=== PATIENT | female | born 1970 | race Caucasian/White ===

== ENCOUNTER → 2019-12-27 15:28 | Outpatient (CLI) | payer OTHER, SELFPAY ==
[2019-12-27 14:03] VITALS: BMI 28.0
[2019-12-31 19:04] LABS: HPV APTIMA, High Risk Negative (Negative)
== END ==
PROVIDERS: PCP Family Medicine; Visit Provider Nurse Practitioner Women's Health
DX: Z12.4 Encounter for screening for malignant neoplasm of cervix (principal)
CPT/HCPCS: 87624; 88175; G0145

== ENCOUNTER → 2020-01-12 | Outpatient (CLI) | payer OTHER, SELFPAY ==
[2019-12-27 14:03] VITALS: BMI 28.0
--- NOTE | 2020-01-12 12:41 | US_ITS ---
STUDY: ULTRASOUND OF THE FEMALE PELVIS - COMPLETE REASON FOR EXAM: Female, 49 years old. menorrhagia LMP: January 12, 2020. TECHNIQUE: Transabdominal and Transvaginal TECHNICAL QUALITY: Adequate. COMPARISON: None. FINDINGS: The uterus is anteverted and is in a midline position. The uterus measures 7 cm x 4.5 cm x 3.8 cm. There is a Nabothian cyst of the cervix. The endometrium measures 5.8 mm in thickness, and is hyperechoic. There is no demonstrated endometrial mass. There is a 1.4 cm x 1.2 cm x 0.7 cm fibroid in the lower uterine segment. I.U.D. - The patient does not have an I.U.D. The right ovary is visualized. The right ovary measures 2.6 cm x 1.1 centimeters x 1.4 cm. There is no right ovarian cyst or ovarian mass. There is no visualized right adnexal mass or complex lesion. There is normal arterial and normal venous vascularity. The left ovary is visualized. The left ovary measures 3 cm x 1.9 cm x 1.6 cm. There is no left ovarian cyst or ovarian mass. There is no visualized left adnexal mass or complex lesion. There is normal arterial and normal venous vascularity. There is no fluid in the cul-de-sac. The pre void volume of the bladder was 521 ml. Polycystic ovary disease: No. US/Transvaginal Non- IMPRESSION: 1.4 cm x 1.2 cm x 0.7 cm fibroid in the lower uterine segment. Electronically Signed: Shiraz Aldrich, at 14:53 EDT , Service support ,
--- NOTE | 2020-01-12 12:41 | BI_ITS ---
MAMMOGRAPHY - BILATERAL SCREENING REASON FOR EXAM: Female, 49 years old. Routine annual screening examination. PERTINENT HISTORY: Aunt with breast cancer. TECHNIQUE: Digital bilateral breast kilo (3D mammographic acquisition) in the CC and MLO projections. 2-D mediolateral oblique (MLO) and craniocaudad (CC) views of both breasts were obtained. CAD: Full Field Digital Mammography with Computer Added Detection was performed. COMPARISON: None. Baseline examination. FINDINGS: Breast Composition: The breasts are heterogeneously dense, which may obscure small masses. There are no dominant masses or suspicious calcifications. Benign appearing bilateral axillary lymph nodes. No other significant abnormalities are identified. BI/SCREEN MAMM (CAD) W/KILO BILAT IMPRESSION: Negative screening mammogram. Yearly followup mammogram recommended. (A) ASSESSMENT CATEGORY: BIRADS Category 2: Benign. A letter regarding these results will be sent to the patient by the facility within 30 days. Approximately 10% of breast cancers are not detected by mammography. A normal mammogram should not delay biopsy of a clinically suspicious abnormality. [id number] Electronically Signed: Shiraz Aldrich, at 14:29 EDT , Service support ,
--- NOTE | 2020-01-12 12:41 | US_ITS ---
STUDY: ULTRASOUND OF THE FEMALE PELVIS - COMPLETE REASON FOR EXAM: Female, 49 years old. menorrhagia LMP: January 12, 2020. TECHNIQUE: Transabdominal and Transvaginal TECHNICAL QUALITY: Adequate. COMPARISON: None. FINDINGS: The uterus is anteverted and is in a midline position. The uterus measures 7 cm x 4.5 cm x 3.8 cm. There is a Nabothian cyst of the cervix. The endometrium measures 5.8 mm in thickness, and is hyperechoic. There is no demonstrated endometrial mass. There is a 1.4 cm x 1.2 cm x 0.7 cm fibroid in the lower uterine segment. I.U.D. - The patient does not have an I.U.D. The right ovary is visualized. The right ovary measures 2.6 cm x 1.1 centimeters x 1.4 cm. There is no right ovarian cyst or ovarian mass. There is no visualized right adnexal mass or complex lesion. There is normal arterial and normal venous vascularity. The left ovary is visualized. The left ovary measures 3 cm x 1.9 cm x 1.6 cm. There is no left ovarian cyst or ovarian mass. There is no visualized left adnexal mass or complex lesion. There is normal arterial and normal venous vascularity. There is no fluid in the cul-de-sac. The pre void volume of the bladder was 521 ml. Polycystic ovary disease: No. US/Pelvic (Non ) IMPRESSION: 1.4 cm x 1.2 cm x 0.7 cm fibroid in the lower uterine segment. Electronically Signed: Shiraz Aldrich, at 14:53 EDT , Service support ,
== END | disposition home or self-care (01) ==
PROVIDERS: PCP Family Medicine; Referring Provider Nurse Practitioner Women's Health; Visit Provider Nurse Practitioner Women's Health
DX: N92.0 Excessive and frequent menstruation with regular cycle (principal); Z12.31 Encounter for screening mammogram for malignant neoplasm of breast
CPT/HCPCS: 76830; 76856; 77063; 77067

== ENCOUNTER → 2020-01-31 | Outpatient (CLI) | payer OTHER, SELFPAY ==
[2020-01-31 13:36] VITALS: BMI 27.8
--- NOTE | 2020-01-31 13:50 | EMB_PTH ---
PATIENT: AMRIK STEPHEN [facility] U#:[id number] AGE/SX: 49/F ROOM: RE01/31/[address]: ANNE Savage : 1970 BED: DIS: 01/31/2020 SPEC #: [id number] RECD: 01/31/20 16:52 STATUS: MIKY REQ #: [id number] MARY ELLEN: 01/31/20 13:[address]: Sandie Cervantes NP DEPT: SURGICAL PATHOLOGY RECD BY: Bettina Espinosa ENTERED: 02/01/20 14:25 SP TYPE: ENDOM BX/C HEATH DR: Dr. Esa Posey MD Tissues: Endometrium, NOS Procedures: Surgery Specimen Level IV Comments: @ Originally on account #[id number] Req #[id number] HEADER OPERATION: Endometrial biopsy PRE-OP DIAGNOSIS: Abnormal uterine bleeding TISSUE SUBMITTED: Endometrial lining MICROSCOPIC DIAGNOSIS Endometrial biopsy: Secretory endometrium. SJ:nancy 02/02/20 MICROSCOPIC DESCRIPTION Slides are reviewed. GROSS DESCRIPTION Received is one container labeled with the patient's name and not further designated. The specimen consists of multiple irregular fragments of light gómez soft tissue that in aggregate measure 2.5 x 2.5 x 0.2 cm. The specimen is totally submitted in one cassette. / AM:nancy 02/01/20 TC:4 CPT: 27895
== END | disposition home or self-care (01) ==
LOC: LABSPEC 17:03
PROVIDERS: PCP Family Medicine; Referring Provider Nurse Practitioner Women's Health; Visit Provider Nurse Practitioner Women's Health
DX: N93.9 Abnormal uterine and vaginal bleeding, unspecified (principal)
CPT/HCPCS: 88305

== ENCOUNTER 2020-03-07 05:39 | Day surgery (SDC) | payer OTHER, SELFPAY ==
[2020-01-17 14:26] VITALS: BMI 28.0
[2020-02-21 16:18] VITALS: BMI 27.8
[2020-03-07] VITALS (15 sets, daily range): BP systolic 101–145; BP diastolic 65–93; PULSE 64–98; RESP 16; TEMP 36.1–37; O2SAT 95–100; BMI 27.6; BMI 29.4
[2020-03-07 06:01] LABS: Internal QC Validated? YES +Cl - CLEAR BKGD; Pregnancy, Urine Negative Negative
[2020-03-07] MEDS: Lactated Ringers 1,000 ML 40 ML IV (06:21)
[2020-03-07] MEDS: Acetaminophen 500 MG Tablet 1000 MG PO ×3 (06:23→18:05)
[2020-03-07] MEDS: Celecoxib 200 MG Capsule 400 MG PO (06:24)
[2020-03-07] MEDS: Scopolamine 1mg/72hr Patch 1 PATCH TRANSDERM. (06:24)
[2020-03-07] MEDS: Gabapentin 600 MG Tablet PO (06:24)
[2020-03-07] MEDS: dexAMETHasone 10 MG/ML Vial 8 MG IV (06:24)
[2020-03-07 06:25] LABS: Hematocrit 40.6 % (37-47); Hemoglobin 13.3 g/dL (12.0-15.0); Mean Corp Hgb Conc 32.8 g/dL (32-36); Mean Corpuscular Hgb 28.4 pg (27.0-32.0); Mean Corpuscular Volume 86.6 fL (81-99); Mean Platelet Vol. 10.4 fl (6.2-12.0); Platelet Count 377 K/mm3 (150-450); RBC Distribution Width CV 14.9 % (11.6-14.6); Red Blood Count 4.69 M/mm3 (4.2-5.4); White Blood Count 9.8 K/mm3 (4.4-11.0)
[2020-03-07 06:35] LABS: Magnesium 2.2 mg/dL (1.6-2.6)
[2020-03-07] MEDS: Enoxaparin 40 MG/0.4 ML Syringe SC (07:00)
--- NOTE | 2020-03-07 07:15 | PCM.HPOB.BLA ---
- Problem List (1) Heavy menses Status: Acute Qualifiers: Comment: nl emb, 7 cm uterus with 1.5 cm fibroid. David (2) Urge incontinence Status: Acute (3) Uterovaginal prolapse Status: Acute Comment: urogyn consult. plan TVH BS combo case. Will need pelvic floor physical therapy after surgery (4) PCOS (polycystic ovarian syndrome) Status: Chronic History and Physical Date of Admission: 03/07/20 Intake Vital Signs 02/21/20 BMI 27.8 02/21/20 Height 5 ft 2 in 02/21/20 Weight: 152 lb 02/21/20 BMI 27.8 02/21/20 BP 112/80 Intake Visit Reasons: ERAS PRE OP Chief Complaint: Pre op ERAS TV BS Nayeli Pearce Pension Adviser Required: No Is patient in pain?: No Allergies iodine Allergy (Mild, Verified 02/21/20 16:18) felt ill Latex, Natural Rubber Allergy (Mild, Verified 02/21/20 16:18) rash Medications NK 12/27/19 [History Confirmed 02/21/20] Is last menstrual period known: No Post menopausal: No Patient : No [facility] Medical History PCOS (polycystic ovarian syndrome) (Chronic) Surgical History Depressed skull fracture (Acute) Family History Mother Myocardial infarction Father Dementia Social History (Updated 02/21/20 @ 16:[address] Angie Holt MD) Smoking Status: Never smoker alcohol intake: never substance use type: does not use caffeine: Yes what type of physical activity do you participate in: none seatbelt use: always do you feel safe at home: Yes additional social history: -[employer] Patient is an Director Of Engineering HPI ERAS PRE OP: Details: AMRIK STEPHEN is a 49 year old who presents for Female Reproductive History Questions: Metorrhagia: No, Sexually active: Yes, Dyspareunia: No, PCB: No Menopausal Symptoms: No hot flashes, No night sweats, No difficulty concentrating, No change in libido Pregancy History 0 Elective abortions Hx Para Spontaneous abortions Hx # Term Pregnancies Ectopic pregnancies Hx # Pregnancies Multiple births # of living children Past Pregnancies Del. Date Name GA/Weeks Outcome Route Bth Weight Gen Labor [facility]est[facility] FOB Unknown 1997 Sher[place]- adopted ROS Const Constitutional: Denies night sweats Cardio Card: Denies chest pain Resp Resp: Denies cough or dyspnea GI GI: Reports as per HPI; denies abdominal pain, constipation, nausea or vomiting : Denies hot flashes or nipple discharge Skin Skin/Breast: Denies nipple discharge Psych Psych: Denies change in sex drive or difficulty concentrating Exam Const General: cooperative, healthy appearing, comfortable, no acute distress, well developed Nutritional Appearance: average body habitus Orientation: alert HENMT Head: normal to inspection, normocephalic Neck Neck: normal visual inspection, trachea midline Thyroid: thyroid normal Resp Effort & Inspection: normal respiratory effort GI Inspection: normal to inspection, non-distended Palpation: soft, no hepatosplenomegaly General: bladder normal to palpation External Female Exam: normal external appearance, normal appearance of the urethra Urethra: normal appearance of the urethra Speculum Exam - Vagina: normal appearance of the vagina, vaginal bleeding Speculum Exam - Cervix: normal appearance of the cervix, nontender Bimanual Exam- Vagina & Uterus: bladder normal to palpation, No cervical tenderness Bimanual Exam- Adnexa, other: normal adnexae, adnexae mobile, no adnexal masses, pelvic support normal Pelvic Support: normal OB/External & Speculum: vaginal bleeding Speculum Exam: vaginal bleeding Skin General: no rashes or lesions noted Assessment & Plan Problems 1. PCOS (polycystic ovarian syndrome) E28.2 2. Heavy menses N92.0 nl emb, 7 cm uterus with 1.5 cm fibroid. David 3. Uterovaginal prolapse N81.4 urogyn consult. plan TVH BS combo case. Will need pelvic floor physical therapy after surgery 4. Urge incontinence N39.41 Plan After discussing the patient's diagnosis and treatment plan options, patient wishes to proceed with surgical management. I have discussed with the patient the risks, benefits, and alternatives of the procedure which include but are not limited to risks of anesthesia, bleeding, infection, possible damage to bowel, bladder, or surrounding vasculature which could lead to additional surgery to evaluate any complications. Patient agrees to procedure and wishes to proceed. ACOG/uptodate references given for additional information regarding procedure. Coding Level of Care Code No Charge Diagnoses PCOS (polycystic ovarian syndrome) E28.2 Heavy menses N92.0 Uterovaginal prolapse N81.4 Urge incontinence N39.41 UPDATE- I have seen the patient and performed any clinically relevant updates to the history and physical exam. Angie Holt MD
--- NOTE | 2020-03-07 07:17 | OP.PCM_ITS ---
Problem List (1) Heavy menses Status: Acute Qualifiers: Comment: nl emb, 7 cm uterus with 1.5 cm fibroid. David (2) Urge incontinence Status: Acute (3) Uterovaginal prolapse Status: Acute Comment: urogyn consult. plan TVH BS combo case. Will need pelvic floor physical therapy after surgery (4) PCOS (polycystic ovarian syndrome) Status: Chronic Report of Operation Date of Procedure: 03/07/20 Pre-Operative Diagnosis: prolapse Post-Operative Diagnosis: same Surgery/Procedure Performed:: tvh bs Description of Surgical Findings:: nl tubes ovaries uterus flexboard operator: Edith Ayers flexboard operator: Tristen Gonzalez Type of Anesthesia:: General Special Medications: none Specimen's removed: uterus tubes Drains: ambrose Estimated Blood Loss (mL): 50 Fluids Replaced: crystalloid Description of Procedure: Patient was taken to the operating room and was placed under general anesthesia was prepped and draped in normal sterile fashion in the dorsal lithotomy position. Preoperative antibiotics and SCDs and Ambrose catheter was placed inside the bladder. Weighted speculum was placed in the vagina and the anterior and posterior lip of the cervix was grasped with 2 Jorge clamps and circumferentially injected with dilute vasopressin. A circumferential incision was made with a scalpel and the posterior cul-de-sac was entered into sharply and a longneck speculum was placed. The anterior cul-de-sac was also dissected down and entered into sharply and the uterosacral ligaments were clamped cut and suture ligated bilaterally followed by the cardinal ligaments which were Clamped cut and suture ligated bilaterally with 0 Monocryl. The uterus serially descended and progressive bites were taken bilaterally up to the level of the utero-ovarian ligament bilaterally which was clamped transected and double ligated with 0 Monocryl suture and 0 Vicryl free tie. Bilateral fallopian tubes and ovaries were well visualized and noted be within normal limits and the bilateral fallopian tubes were transected across the base with a Dora clamp and removed and sutured with 0 Vicryl suture. Excellent hemostasis was noted. Posterior peritoneum was reapproximated with 2-0 Vicryl and a modified Hicks stitch was placed through the posterior vaginal cuff and bilateral uterosacral ligaments across the posterior cul-de-sac skimming along to provide apical support to the vagina. The vagina was closed with [id number] 0 Vicryl pop offs including the posterior and anterior peritoneum in the reapproximation. Excellent hemostasis was noted. All instruments removed from the vagina clear urine was noted at the end of the procedure and patient was awoken and taken recovery in stable condition. Grafts/Implants Used: see urogyn note - Complications none - Admit VTE Documentation VTE Present on Admission: No VTE Mechan Device Prophylaxis: SCD's VTE Pharm Prophylaxis ordered?: Yes Multi Select Codes - Urinary/Genital Urinary/Genital CPT Codes: 36258 TVH+BS/O <250gr uterus
--- NOTE | 2020-03-07 07:18 | PCM.DC.VHY ---
Discharge Diet: No Restrictions Discharge Activity: Return to Normal Activity, May Not Drive, May Shower May resume sexual activity in: 6-8 weeks Call your doctor if your incision/area has: Continuous Slow Oozing, Sudden Increased Bleeding, Increased Pain/ Swelling, Increased Redness, Foul Smelling Discharge Call your doctor if you observe: Fever of 101 or Higher, Inability to urinate, Inability to have a bowel movement, Using more than one pad per hour Allergies/Adverse Reactions: Allergies iodine Allergy (Mild, Verified 03/07/20 05:55) felt ill Latex, Natural Rubber Allergy (Mild, Verified 03/07/20 05:55) rash Medications to take at Discharge Multivitamin 1 ea PO DAILY 02/25/20 Naproxen [Naprosyn] 250 - 500 mg PO Q8H PRN PRN #30 tab 03/07/20 Oxycodone HCl/Acetaminophen [Percocet 5-325] 1 - 2 tablet PO Q6H PRN PRN 7 Days #15 tablet 03/07/20 The following prescriptions were given: Naproxen [Naprosyn] 250 - 500 mg PO Q8H PRN PRN #30 tab PRN Reason: MILD PAIN Transmission Status: Pending to [facility] Oxycodone HCl/Acetaminophen [Percocet 5-325] 1 - 2 tablet PO Q6H PRN PRN 7 Days #15 tablet PRN Reason: Pain Transmission Status: Sent to [facility] Orders to be completed after discharge: Type & Screen - PAT ONLY Time Frame: 03/07/20, Facility: [facility], Location: Laboratory Primary Care Physician: Esa Posey MD [Primary Care Provider] - Test Results: Test results from this visit will be discussed in further detail at your follow-up appointment, if applicable. Please Follow Up With: Angie Holt MD - [phone]
[2020-03-07] MEDS: Cefazolin 2 GM in 0.9% Normal Saline 100 ML IV (07:25)
--- NOTE | 2020-03-07 07:30 | HYST_PTH ---
PATIENT: AMRIK STEPHEN LOC: [facility] U#:[id number] AGE/SX: 49/F ROOM: RE03/07/[address]: Dr. Joceline Tyler MD : 1970 BED: DIS: 03/08/2020 SPEC #: [id number] RECD: 03/07/20 09:27 STATUS: MIKY ARA #: [id number] MARY ELLEN: 03/07/20 07:[address]: Joceline Tyler DEPT: SURGICAL PATHOLOGY RECD BY: Diony Jiménez ENTERED: 03/07/20 10:04 SP TYPE: HYSTERECT OTHR DR: MD Dr. Angie Salgado MD Tissues: Uterus, NOS Procedures: Surgery Specimen Level V HEADER OPERATION: ERAS, vaginal hysterectomy, bilateral salpingectomy PRE-OP DIAGNOSIS: Urge incontinence, uterovaginal prolapse, polycystic ovarian syndrome TISSUE SUBMITTED: Uterus, bilateral fallopian tubes MICROSCOPIC DIAGNOSIS Uterus, bilateral fallopian tubes, vaginal hysterectomy and bilateral salpingectomy: Cervix - chronic inflammation and squamous metaplasia. Endometrium - secretory endometrium. Myometrium - adenomyosis. - A submucosal leiomyoma (0.5 cm in greatest dimension). See comment. Bilateral fallopian tubes - no pathologic diagnosis. Paratubal cysts. SJ:rg 03/08/20 COMMENT The larger subserosal nodular mass is consistent with adenomyosis. MICROSCOPIC DESCRIPTION Slides are reviewed. GROSS DESCRIPTION Received in fixative is one container labeled with the patient's name and designated uterus, bilateral fallopian tubes. The specimen consists of a hysterectomy specimen consisting of uterus with cervix and detached bilateral fallopian tubes. The uterus with cervix weighs 56 gm and measures 8.5 x 5 x 3.5 cm. The serosal surface is gómez, glistening. The ectocervical mucosa is unremarkable. The external os is circular in contour. The endocervical canal measures 3 cm in length and the endocervical mucosa is gómez, glistening and unremarkable. The triangular endometrial cavity measures 5 cm in length and up to 2 cm in width. The endometrium is gómez, glistening without any mass lesion and measures 0.1 cm in thickness. The uterine wall reveals two nodular masses, one submucosal and subserosal. The submucosal mass measures 0.5 cm in greatest dimension. The subserosal mass measures 1.5 cm in greatest dimension. Sections of these masses reveal gómez whorled cut surfaces without areas of hemorrhage, necrosis or cystic degeneration. The uninvolved uterine wall measures up to 2 cm in thickness. The fallopian tubes are not identified as right or left. One of the fallopian tubes measure 5.5 cm in length and 0.5 cm in diameter. The fimbrial end is identified. Sections reveal unremarkable cut surfaces. The second fallopian tube measures 5.5 cm in length and 0.5 cm in diameter. The fimbrial end is identified. Four paratubal cysts are noted measuring 0.5 and 1.8 cm in greatest dimension. The paratubal cysts are filled with clear fluid. Sections reveal unremarkable cut surfaces. Textiles [employer] Teacher sections are submitted in nine cassettes as follows: 1 - anterior cervix, 2 - posterior cervix, 3 & 4 - anterior uterine wall (cassette 3 contains the smaller submucosal nodular mass), 5 & 6 - posterior uterine wall, 7 - larger subserosal nodular mass, 8??one fallopian tube, 9 - second fallopian tube and paratubal cysts. / RENAN:nancy 03/07/20 TC:5 CPT: 72051
[2020-03-07 07:35] LABS: Bedside Glucose 176 mg/dL (70-110)
[2020-03-07] MEDS: Estrogens,Conj. 1 Tube 1 DOSE (08:37)
[2020-03-07] MEDS: Vasopressin 20 UNITS/ML Vial (08:38)
[2020-03-07] MEDS: Ondansetron 4 MG/2 ML Vial IV (08:42)
[2020-03-07] MEDS: Lactated Ringers 1,000 ML 70 ML IV ×2 (09:04→14:52)
--- NOTE | 2020-03-07 09:48 | OP.PCM_ITS ---
Problem List (1) Stress incontinence Status: Acute Report of Operation Date of Procedure: 03/07/20 Pre-Operative Diagnosis: stress incontinence, uterovaginal prolapse Post-Operative Diagnosis: Same Surgery/Procedure Performed:: Mid urethral sling insertion, cystoscopy with bilateral ureteral catheterization Type of Anesthesia:: General Estimated Blood Loss (mL): 5cc Description of Procedure: The patient is a 49-year-old female who I evaluated in the office with mixed incontinence. After discussing the risk benefits and alternatives, undergoing urodynamics and cystoscopy, she decided to proceed with surgical intervention for her stress incontinence. Her informed consent included a discussion of the risks of COVID-19. The patient was taken to the operating room and placed in the operating room table. She was appropriately padded and secured to the table. Anesthesia monitored the head, neck, airway, IV access and vital signs throughout the case. Once anesthesia was appropriate ministered the patient underwent a hysterectomy etc. per Dr. John Toney. Following closure of the cuff the case was turned over to me. There is no remaining prolapse to repair. The mid urethra was identified and injected submucosally with vasopressin for hydrostatic dissection and hemostatic control. A midline vertical 1.5 cm incision was made over the mid urethra. Sharp and blunt dissection was performed on either side of the urethra. Using the Altis mid urethral sling trochars, the sling was inserted into the obturator complex bilaterally. The mesh lay against the urethra without tension and a flat position. The tensioning suture was cut. The midline incision was closed using running interlocking 2-0 Vicryl. At this time a cystourethroscopy was performed through the urethra. A good ureteral jet was observed on the patient's right side and minimally on the left. A whistle-tip 5 Cook Islander catheter was inserted to 20 cm on both sides without difficulty or evidence of obstruction or trauma. The cystoscope was removed and the Carrillo catheter was replaced. The vagina was packed with vaginal packing and Premarin cream. The patient was awakened and taken to the recovery room in good condition. There were no complications during the procedure. Grafts/Implants Used: Altis midurethral sling - Complications none - Admit VTE Documentation VTE Present on Admission: Yes VTE Mechan Device Prophylaxis: SCD's VTE Pharm Prophylaxis ordered?: Yes
[2020-03-07] MEDS: Docusate Sodium 100 MG Capsule PO ×2 (14:51→21:05)
[2020-03-07] MEDS: Cephalexin 500 MG Capsule PO ×2 (14:51→21:05)
[2020-03-07] MEDS: Ketorolac 30 MG/ML Syringe IV ×2 (14:52→18:05)
[2020-03-08 00:44] VITALS: BP 109/70; PULSE 73; RESP 16; TEMP 36.6; O2SAT 96
[2020-03-08] MEDS: Ketorolac 30 MG/ML Syringe IV ×3 (00:50→12:21)
[2020-03-08] MEDS: Acetaminophen 500 MG Tablet 1000 MG PO ×2 (00:50→06:47)
[2020-03-08 04:25] VITALS: BP 110/69; PULSE 84; RESP 16; TEMP 36.7; O2SAT 98
[2020-03-08 05:18] LABS: Hematocrit 37.2 % (37-47); Hemoglobin 11.9 g/dL (12.0-15.0); Mean Corpuscular Hgb 27.5 pg (27.0-32.0); Mean Corpuscular Volume 86.1 fL (81-99); Mean Platelet Vol. 10.2 fl (6.2-12.0); Platelet Count 367 K/mm3 (150-450); RBC Distribution Width CV 15.2 % (11.6-14.6); RBC Distribution Width SD 48.4 fl (35.1-43.9); Red Blood Count 4.32 M/mm3 (4.2-5.4); White Blood Count 13.6 K/mm3 (4.4-11.0)
[2020-03-08 07:41] VITALS: O2SAT 96
--- NOTE | 2020-03-08 08:03 | PCM.PN.OB ---
Patient Problems: Active and Suspected Problems (Last Reviewed 02/21/20 @ 16:18 by Eliza Walker) Stress incontinence (Acute) Subjective: Pain controlled. Denies chest pain, shortness of breath, chills. Taking PO well. Not passing flatus yet. - Physical Exam Vitals/I&O's: Vital Signs Temp Pulse Resp BP Pulse Ox 98.0 F 84 16 110/69 96 03/08/20 04:25 03/08/20 04:25 03/08/20 04:25 03/08/20 04:25 03/08/20 07:41 Oxygen Flow Rate (L/min) 6 Oxygen Delivery Method Room Air Weight: 160 lb 11.472 oz Body Mass Index (BMI) 29.4 Intake and Output for Last 24 Hours 03/06/20 03/07/20 03/08/20 23:59 23:59 23:59 Intake Total 2214 / 2364 1350 / 1350 Output Total 1350 / 1950 950 / 950 Balance 864 / 414 400 / 400 General: Oriented x3 Abdomen: Soft, Non-Distended Laboratory Results 03/08/20 04:54: WBC 13.6 H, RBC 4.32, Hgb 11.9 L, Hct 37.2, MCV 86.1, MCH 27.5, MCHC 32.0, RDW Std Deviation 48.4 H, RDW Coeff of Ryan 15.2 H, Plt Count 367, MPV 10.2 Current Medications Acetaminophen (Tylenol) 1,000 mg PO Q6 [facility] Last Admin: 03/08/20 06:47 Dose: 1,000 mg Documented by: Cephalexin (Keflex) 500 mg PO Q12 [facility] Last Admin: 03/07/20 21:05 Dose: 500 mg Documented by: Docusate Sodium (Colace) 100 mg PO BID [facility] Last Admin: 03/07/20 21:05 Dose: 100 mg Documented by: Enoxaparin Sodium (Lovenox) 40 mg SC DAILY [facility] Sodium Chloride () 250 mls @ 15 mls/hr IV .[id number] PRN PRN Reason: Saline Flush Sodium Chloride () 250 mls @ 15 mls/hr IV .[id number] PRN PRN Reason: Additional IVPB Infusion Insulin Human Lispro (Humalog Kwikpen (Bkc)) 0 unit SC Q4H PRN PRN; Protocol PRN Reason: BG >/= 180, SEE PROTOCOL Ketorolac Tromethamine (Toradol (Bkc)) 30 mg IV Q6H [facility] Stop: 03/08/20 19:01 Last Admin: 03/08/20 06:03 Dose: 30 mg Documented by: Magnesium Oxide (Mag-Ox 400) 400 mg PO DAILY PRN PRN PRN Reason: Constipation Multivitamins (Multivitamin) 1 tablet PO DAILY@0800 [facility] Nutritional Formula (Lactose Free) (Ensure Enlive) 120 ml PO TIDCM [facility] Ondansetron HCl (Zofran Odt) 4 mg PO Q6H PRN PRN PRN Reason: NAUSEA Oxycodone HCl (Oxyir) 5 - 10 mg PO Q4H PRN PRN PRN Reason: Pain Score 4-10/10 Sodium Chloride () 10 - 40 ml IV UD PRN PRN Reason: SALINE FLUSH Medical Necessity - Tobacco Use Smoking Status: Never smoker Tobacco Use: Non-smoker Assessment/Plan All Active Problems (Last Reviewed 02/21/20 @ 16:18 by Eliza Walker) Stress incontinence (Acute) Urge incontinence (Acute) Uterovaginal prolapse (Acute) Heavy menses (Acute) TVH BS combo case Dr Tyler POD#[address] Tyler's visit note and orders Plans home today
[2020-03-08 08:17] VITALS: BP 112/67; PULSE 68; RESP 16; TEMP 36.6; O2SAT 97
[2020-03-08] MEDS: Multivitamins,Therapeutic Tablet 1 TABLET PO (08:46)
[2020-03-08] MEDS: Enoxaparin 40 MG/0.4 ML Syringe SC (10:32)
[2020-03-08] MEDS: Docusate Sodium 100 MG Capsule PO (10:32)
[2020-03-08] MEDS: Cephalexin 500 MG Capsule PO (10:32)
--- NOTE | 2020-03-08 11:45 | PCM.PN.BLA ---
Progress Note Sitting up in bed. pain controlled. Carrillo and packing is out. Voided twice so far. Not emptying yet. Vitals are good. A/P Post op day #1 Sling and cystoscopy repeat PVR and call to me in the office home later today with follow up in office STROKE Vital Signs/Narrative: Vital Signs Temp Pulse Resp BP Pulse Ox 03/08/20 08:17 97.9 F 68 16 112/67 97
[2020-03-08 13:34] VITALS: BP 130/74; PULSE 75; RESP 16; TEMP 36.8; O2SAT 98
--- NOTE | 2020-03-08 14:20 | DCINST_ITS ---
Discharge Diet: No Restrictions Discharge Activity: May Not Drive, May Shower May resume sexual activity in: 6-8 weeks Additional Activity Instructions:: no exercise, no strenuous activity. no lifting over 5 pounds for 4 weeks. ok for stairs. ok to shower. no tub bathing, swimming or hot tubs. no sexual activity Call your doctor if your incision/area has: Continuous Slow Oozing, Sudden Increased Bleeding, Increased Pain/ Swelling, Increased Redness, Foul Smelling Discharge Call your doctor if you observe: Fever of 101 or Higher, Inability to urinate, Inability to have a bowel movement, Using more than one pad per hour Allergies/Adverse Reactions: Allergies iodine Allergy (Mild, Verified 03/07/20 05:55) felt ill Latex, Natural Rubber Allergy (Mild, Verified 03/07/20 05:55) rash Medications to take at Discharge Multivitamin 1 ea PO DAILY 02/25/20 Naproxen [Naprosyn] 250 - 500 mg PO Q8H PRN PRN #30 tab 03/07/20 Oxycodone HCl/Acetaminophen [Percocet 5-325] 1 - 2 tab PO Q6H PRN PRN 7 Days #15 tab 03/07/20 Oxycodone HCl/Acetaminophen [Percocet 5-325] 1 - 2 tab PO Q6H PRN PRN 7 Days #15 tab 03/07/20 Bad tablePrimary Care Physician: Esa Posey MD [Primary Care Provider] - Test Results: Test results from this visit will be discussed in further detail at your follow- up appointment, if applicable. Please Follow Up With: Joceline Tyler MD When: in 1 week, call for appt Proposed Discharge Date: 03/08/20
== END 2020-03-08 15:45 | disposition home or self-care (01) ==
LOC: SDC 05:41 → AC 05:41 → MS3 03-08 08:20
PROVIDERS: Anesthesiology; Obstetrics & Gynecology; PCP Family Medicine; Referring Provider Urology; Visit Provider Urology
PROC: (CPT 58260; principal; 2020-03-07 07:10)
PROC: (CPT 57260; 2020-03-07 07:10)
DX: N81.4 Uterovaginal prolapse, unspecified (principal); N39.46 Mixed incontinence; N80.0 Endometriosis of uterus; D25.0 Submucous leiomyoma of uterus; N72 Inflammatory disease of cervix uteri; N83.8 Other noninflammatory disorders of ovary, fallopian tube and broad ligament; E28.2 Polycystic ovarian syndrome; N94.10 Unspecified dyspareunia; Z11.59 Encounter for screening for other viral diseases
CPT/HCPCS: 52000; 57288; 58262; 36415; 81025; 82962; 83735; 85027; 86850; 86900; 86901; 87635; 88307; 94799; 99251; J7120; C1758; G0463; J2405; U0003

== ENCOUNTER 2021-07-03 15:40 | Emergency (ER) | payer OTHER, SELFPAY ==
[2021-07-03 15:41] VITALS: BP 148/82; PULSE 102; RESP 18; TEMP 36.4; O2SAT 96; BMI 27.4
--- NOTE | 2021-07-03 17:41 | RAD_ITS ---
EXAM: XR CHEST, 1 VIEW CLINICAL INDICATION: cough Technologist Notes Congestion, sore throat, dizziness, fatigue. TECHNIQUE: Frontal view of the chest. This report was created using [employer] report generation technology. COMPARISON: None. FINDINGS: LUNGS AND PLEURAL SPACES: Unremarkable. No consolidation or edema. No pneumothorax. No effusion. HEART: Unremarkable. Cardiac silhouette not enlarged. MEDIASTINUM: Central airways and mediastinal contour are unremarkable. BONES/JOINTS: Unremarkable. SOFT TISSUES: Unremarkable. RAD/Chest 1 View (Portable) IMPRESSION: No radiographic evidence of acute cardiopulmonary disease. Electronically Signed: Garfield Peres MD at 18:25 EST , Service support ,
[2021-07-03 18:05] LABS: Absolute Lymphocyte Count 1.98 X10^3/uL (0.83-4.51); Basophil# 0.04 X10^3/uL; Basophil% 0.8 % (0-1); Eosinophil# 0.01 X10^3/uL; Eosinophils% 0.2 % (0-5); Hematocrit 47.7 % (37-47); Hemoglobin 15.5 g/dL (12.0-15.0); Lymphocyte # 1.98 X10^3/ul (0.83-4.51); Lymphocyte % 41.3 % (19-41); Mean Corp Hgb Conc 32.5 g/dL (32-36); Mean Corpuscular Hgb 28.2 pg (27.0-32.0); Mean Corpuscular Volume 86.9 fL (81-99); Mean Platelet Vol. 10.6 fl (6.2-12.0); Monocyte# 0.79 X10^3/uL; Monocyte% 16.5 % (0-10); NRBC Flagged by Analyzer 0 % (0-5); Neutrophil # 1.96 X10^3/uL (2.7-7.7); Platelet Count 307 K/mm3 (150-450); RBC Distribution Width CV 14.6 % (11.6-14.6); RBC Distribution Width SD 46.7 fl (35.1-43.9); Red Blood Count 5.49 M/mm3 (4.2-5.4); White Blood Count 4.8 K/mm3 (4.4-11.0)
--- NOTE | 2021-07-03 18:21 | NURSING ---
GREEN TOP HEMOLIZED. BLUE TOP IF IT'S NEEDED
--- NOTE | 2021-07-03 18:50 | EX.ED.DYSGE1 ---
HPI History of Present Illness Chief Complaint: General Illness Informant: patient Onset/Context/Timing Onset: Days (3) Context: Gradual Onset Timing: Continuous Quality: Lightheadedness Location: Head Worsened by: Nothing Relieved by: Nothing Associated Symptoms Associated Symptoms: Sore throat, rhinorrhea, diarrhea, subjective chills Narrative Narrative: Patient presents with dizziness, sore throat, rhinorrhea, and subjective chills that have been getting worse over the past 3 days. Patient describes her dizziness as a lightheaded feeling. Patient states nothing makes it worse and nothing makes it better. Patient states her is currently admitted to the hospital with COVID-19. Patient states she is coughing up some green sputum. Patient also admits to some diarrhea. [facility] Medical History PCOS (polycystic ovarian syndrome) Home Medications NK 04/19/20 [History Last Taken Unknown] Allergy/AdvReac Type Severity Reaction Status Date / Time iodine Allergy Mild felt ill Verified 07/03/21 15:43 Latex, Natural Rubber Allergy Mild rash Verified 07/03/21 15:43 Family History Mother Myocardial infarction Father Dementia Surgical History Depressed skull fracture History of cystoscopy History of total vaginal hysterectomy (TVH) Hx of bilateral salpingectomy Social History Smoking Status: Never smoker alcohol intake: never substance use type: does not use caffeine: Yes what type of physical activity do you participate in: none seatbelt use: always do you feel safe at home: Yes additional social history: -[employer]- [employer] 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[employer] [facility] ED Constitutional Constitutional ED: Reports chills and subjective; Denies fever(s) Eyes Eyes: Denies blurry vision or change in vision ENT ENT ED: Reports rhinorrhea and sore throat Cardiovascular Cardiovascular: Denies chest pain or palpitations Respiratory/Chest Respiratory/Chest: Reports cough and sputum; Denies dyspnea Gastrointestinal Gastrointestinal: Reports diarrhea; Denies nausea or vomiting Genitourinary Genitourinary ED: Denies dysuria or hematuria Musculoskeletal Musculoskeletal: Reports back pain; Denies neck pain Integumentary Denies abscess or rash Neurologic Neurologic: Denies headache(s) or weakness Allergic/Immunologic Allergic/Immunologic ED: Denies mouth swelling or urticaria EXAM Physical Exam Const Vital Signs: 07/03/21 15:41 07/03/21 18:05 Temperature 97.6 F L Temperature Source Temporal Pulse Rate 102 H Respiratory Rate 18 Respiratory Effort Normal Non-Labored Respiratory Pattern Normal Blood Pressure 148/82 H Blood Pressure Mean 104 Pulse Ox 96 Oxygen Delivery Method Room Air Positive well nourished and well developed General Appearance ED: well developed HEENT Reports moist mucous membranes Neck supple and no JVD Resp normal respiratory effort and clear to auscultation bilaterally Cardio regular rate, regular rhythm and no murmurs GI normal to inspection, nondistended, normoactive bowel sounds and non-tender Palpation: soft Extremity normal to inspection General Extremety ED: Negative for edema or tenderness General Extremity: Negative for edema Neuro oriented x3, CN's II-XII intact bilaterally and no sensory deficits noted Sensorium / Orientation: alert Motor Exam: strength 5/5 throughout Psych mental status grossly normal Skin no rashes or lesions noted MDM MDM MDM Narrative Medical decision making narrative: COVID-19 rapid antigen was obtained and was positive. CBC shows hemoglobin of 15.5 and hematocrit 47.7. Platelets were normal. Comprehensive metabolic profile was obtained and was within normal limits. Portable 1 view chest x-ray was obtained. On my interpretation, lung porter are clear. There is normal cardiac silhouette. Bony thorax is normal. There is no acute process noted. Radiologist also interpreted the x-ray and agrees. Patient was given IV fluids. Patient is feeling better on reevaluation. Patient requested monoclonal antibody infusion referral. This was given. Patient was instructed to follow-up with her primary care physician in 5 to 7 days. Patient understands and is agreeable with the plan. All questions were answered. The following information was communicated to the patient or caregiver: Monoclonal antibody infusion is not an FDA approved drug. The FDA has authorized the emergency use of monoclonal antibody therapy. The patient had the option to refuse or accept treatment with monoclonal antibody therapy. The patient was informed that the number of people treated with monoclonal antibody therapy at this time is small. The potential benefits and the potential risks of monoclonal antibody therapy are not fully known. Potential benefits of monoclonal antibody include a reduced risk of progressing to severe COVID-19 infection. Potential risks or side effects of monoclonal antibody therapy include allergic reactions, side effects from injection including brief pain, bleeding, bruising of the skin, soreness, swelling, possible infection at the infusion site. The patient stated understanding of this information communicated and wished to proceed with monoclonal antibody infusion therapy. The patient is appropriate for the Monoclonal Antibody Infusion. The patient states understanding of this information communicated and wishes to proceed with monoclonal antibody infusion therapy. Patient agrees to receive either Balanivimab/Etesvimab or Casirivimab/Imdevimab upon availability. Lab Data Attestation: I reviewed the patient's lab results. Labs: Laboratory Results - last 24 hr 07/03/21 07/03/21 07/03/21 17:50 17:50 18:30 WBC 4.8 RBC 5.49 H Hgb 15.5 H Hct 47.7 H MCV 86.9 MCH 28.2 MCHC 32.5 RDW Std Deviation 46.7 H RDW Coeff of Ryan 14.6 Plt Count 307 MPV 10.6 Immature Gran % (Auto) 0.200 Neut % (Auto) 41.0 L Lymph % (Auto) 41.3 H [place] % (Auto) 16.5 H Eos % (Auto) 0.2 Baso % (Auto) 0.8 Absolute Neuts (auto) 2.0 Absolute Lymphs (auto) 1.98 Nucleated RBC % 0 Sodium Cancelled 139 Potassium Cancelled 4.3 Chloride Cancelled 105 Carbon Dioxide Cancelled 25.0 Anion Gap Cancelled 9 BUN Cancelled 9 Creatinine Cancelled 0.84 Estim Creat Clear Calc Cancelled 63.37 Est GFR (MDRD) Af Amer Cancelled 93 Est GFR (MDRD) Non-Af Cancelled 76 BUN/Creatinine Ratio Cancelled 10.7 Glucose Cancelled 79 Calcium Cancelled 9.1 Total Bilirubin Cancelled 0.40 AST Cancelled 35 ALT Cancelled 36 Alkaline Phosphatase Cancelled 84 Total Protein Cancelled 7.8 Albumin Cancelled 3.7 Globulin Cancelled 4.1 Albumin/Globulin Ratio Cancelled 0.9 Radiography Chest X-Ray - ED: 1 View, Read by ED Physician, Read by Radiologist and Normal Diagnostic Testing: Clinical Impression(s) from Imaging Studies Chest X-Ray 07/03/21 17:41 IMPRESSION: No radiographic evidence of acute cardiopulmonary disease. Electronically Signed: Garfield Peres MD at 18:25 EST , Service support , Discharge Plan Triage Chief Complaint: General Illness ED Provider: Kyree Reis Dx/Rx/DC Orders Clinical Impression: COVID-19 Instructions: Coronavirus Disease 2019 (COVID-19): Overview Prescriptions: No Action NK RF: 0 Stand Alone Forms: Monoclonal Antibody Referral Primary Care Provider: Nasima Underwood NP Referrals: Nasima Underwood NP, [facility] [Primary Care Provider] - 5-7 Days Disposition Disposition: Home, Self Care
[2021-07-03 19:02] LABS: ALB/GLOB Ratio 0.9 RATIO (0.9-2.4); AST(SGOT) 35 U/L (15-37); Alanine Aminotransfer ALT/SGPT 36 U/L (13-56); Albumin, Serum 3.7 g/dL (3.2-5.0); Alkaline Phosphatase 84 U/L (45-117); Anion Gap 9 (5-15); BUN 9 mg/dL (7-18); BUN/Creat Ratio 10.7 RATIO (10-20); Calcium,Total 9.1 mg/dL (8.5-10.1); Chloride 105 mmol/L (98-107); Creatinine, Serum 0.84 mg/dL (0.55-1.02); EST Glomerular Filtration Rate 76 mL/min (>60); Est Glom Filt Rate - Afr Amer 93 mL/min (>60); Estimated Creatinine Clearance 63.37 ml/min; Globulin 4.1 g/dL (2.2-4.2); Glucose 79 mg/dL (74-106); Potassium 4.3 mmol/L (3.5-5.1); Protein, Total 7.8 g/dL (6.4-8.2); Sodium Level 139 mmol/L (136-145)
== END 2021-07-03 20:00 | disposition home or self-care (01) ==
PROVIDERS: Emergency Provider Emergency Medicine; PCP Nurse Practitioner Family
DX: U07.1 COVID-19 (principal); R42 Dizziness and giddiness; R19.7 Diarrhea, unspecified; E28.2 Polycystic ovarian syndrome
CPT/HCPCS: 71045; 80053; 85025; 87426; 96360; 96361; 99282; A4216

== ENCOUNTER 2021-07-05 13:33 | Outpatient (CLI) | payer OTHER, SELFPAY ==
[2021-07-05 13:38] VITALS: BP 140/96; PULSE 87; RESP 16; TEMP 36.9; O2SAT 99; BMI 27.4
[2021-07-05] MEDS: 0.9% Saline Lock 10 ML Syringe IV (13:46)
[2021-07-05 14:16] VITALS: BP 131/79; PULSE 81; RESP 16; TEMP 36.7; O2SAT 98
[2021-07-05 15:02] VITALS: BP 127/81; PULSE 85; RESP 16; TEMP 36.8; O2SAT 98
== END 2021-07-05 15:16 | disposition home or self-care (01) ==
LOC: MS3OUT 13:33 → MS3 13:34
PROVIDERS: PCP Nurse Practitioner Family; Referring Provider Emergency Medicine; Visit Provider Emergency Medicine
DX: Z23 Encounter for immunization (principal); U07.1 COVID-19
CPT/HCPCS: J7050; M0245; Q0245; A4216